=== PATIENT | female | born 1935 | race Caucasian/White ===

== ENCOUNTER 2018-04-23 17:05 | Observation (INO) | payer MEDICARE, MEDICAID ==
[~2018-04-23] VITALS: Ht 170.2 cm; Wt 50.3 kg
[~2018-04-23 17:05] MED LIST: LOPRESSOR25 MG PO; PHENERGAN25 M1 OR; ULTRAM50 MG PO
[2018-04-23 18:24] LABS: HEMATOCRIT 35.7 % (36.0-48.0); MCHC 33.6 g/dL (31.0-37.0); MCV 110.2 fL (80.0-100.0); MEAN PLATELET VOLUME 9.7 fL (7.4-10.4); RBC 3.24 10x6/uL (4.00-5.40); RDW 16.1 % (11.5-14.5); WBC 7.3 10x3/uL (4.8-10.8)
[2018-04-23 18:28] LABS: PLATELET COUNT 172 10x3/uL (130-400)
[2018-04-23 18:38] LABS: ALBUMIN 3.9 g/dL (3.4-5.0); ANION GAP 17.1 mmol/L (8-16); BILIRUBIN - TOTAL 0.39 mg/dL (0.2-1.3); CALCIUM 8.9 mg/dL (8.5-10.1); CARBON DIOXIDE 23.2 mmol/L (21.0-32.0); CREATININE - SERUM 1.5 mg/dL (0.6-1.3); POTASSIUM - SERUM 4.3 mmol/L (3.5-5.1); PROTEIN - SERUM 8.2 g/dL (6.4-8.2)
[2018-04-23 18:52] LABS: BASOPHILS 1 % (0-2); EOSINOPHILS 3 % (0-7); LYMPHOCYTES 58 % (15-50); MONOCYTES 9 % (2-11); NEUTROPHILS 29 % (40-80); PLATELET ESTIMATE NORMAL
[2018-04-23 18:55] LABS: ROULEAUX OCC; TEAR DROP CELLS OCC
--- NOTE | 2018-04-23 19:05 | NUR ---
PATIENT AWAKE AND ALERT, C/O HEADACHE. RESPIRATIONS EVEN AND UNLABORED. FAMILY AT BEDSIDE. BLANKET GIVEN. CALL LIGHT WITHIN REACH. NO OTHER NEEDS NOTED. UPDATED ON PLAN OF CARE AND DELAYS IN CARE. WILL CONTINUE TO MONITOR.
[2018-04-23 19:30] LABS: CREATINE KINASE 71 UL (21-215); LIPASE 210 U/L (73-393); PRO BNP 3276 pg/mL (0-450); THYROID STIMULATING HORMONE 3.73 uIU/mL (0.36-3.74)
[2018-04-23 19:38] LABS: TROPONIN-I < 0.017 ng/mL (0.000-0.060)
--- NOTE | 2018-04-23 20:20 | NUR ---
PATIENT AWAKE AND ALERT. LYING SUPINE. RESPIRATIONS EVEN AND UNLABORED. FAMILY AT BEDSIDE. NO NEEDS NOTED. UPDATED ON PLAN OF CARE AND DELAYS IN CARE. WILL CONTINUE TO MONITOR.
[2018-04-23 20:29] VITALS: BP 160/79
--- NOTE | 2018-04-23 21:20 | NUR ---
PATIENT AWAKE AND ALERT. NO NEEDS NOTED. UPDATED ON PLAN OF CARE AND DELAYS IN CARE. WILL CONTINUE TO MONITOR.
--- NOTE | 2018-04-23 22:30 | NUR ---
PATIENT AWAKE AND ALERT. FAMILY AT BEDSIDE. NO NEEDS NOTED. WILL CONTINUE TO MONITOR.
[2018-04-24] MEDS ORDERED: ASPIRIN EC81 M1 PO (01:01)
[2018-04-24 01:31] VITALS: BMI 17.4
[2018-04-24 04:59] VITALS: BP 139/67
[2018-04-24 08:00] VITALS: BP 123/72
[2018-04-24 10:50] LABS: BASOPHILS 0.6 % (0-2); EOSINOPHILS 0 % (0-7); HEMATOCRIT 35.1 % (36.0-48.0); HEMOGLOBIN 11.8 g/dL (12-16); IMMATURE GRANULOCYTES 0.4 % (0-5); LYMPHOCYTES 52.1 % (15-50); MCHC 33.6 g/dL (31.0-37.0); MEAN PLATELET VOLUME 9.6 fL (7.4-10.4); MONOCYTES 9.6 % (2-11); NEUTROPHILS 37.3 % (40-80); PLATELET COUNT 168 10x3/uL (130-400); RBC 3.19 10x6/uL (4.00-5.40)
[2018-04-24 10:54] LABS: WBC 5.4 10x3/uL (4.8-10.8)
[2018-04-24 11:05] LABS: ALBUMIN 3.3 g/dL (3.4-5.0); ANION GAP 13.5 mmol/L (8-16); BILIRUBIN - TOTAL 0.4 mg/dL (0.2-1.3); CALCIUM 8.6 mg/dL (8.5-10.1); CARBON DIOXIDE 25.5 mmol/L (21.0-32.0); CREATININE - SERUM 1.6 mg/dL (0.6-1.3); PROTEIN - SERUM 6.7 g/dL (6.4-8.2)
[2018-04-24 12:30] VITALS: BP 137/68
[2018-04-24 12:42] VITALS: BMI 17.4
[2018-04-24 16:00] VITALS: BP 117/49
--- NOTE | 2018-04-24 17:08 | MORECARE ---
CASE MANAGEMENT DISCHARGE SUMMARY PATIENT: BERNARD FARRAR UNIT: [id number] ADM DATE: 04/23/18 AGE: 82 : 36 SEX: F ROOM/BED: D.2218 AUTHOR: FRANCISCO HAQ PHYSICIAN: REFERRING PHYSICIAN: SHELL ANSARI MD DATE OF SERVICE: 04/24/18 Discharge Plan Patient Name: BERNARD FARRAR [facility] [facility] 1935 Planned Disposition: Home Anticipated Discharge Date: Discharge Date: Expected LOS: Initial Reviewer: [email or web address] Initial Review Date: 04/23/2018 Generated: 04/24/18 6:08 pm DCPIA - Discharge Planning Initial Assessment Updated by [email or web address]: Shila Corona on 04/24/18 5:08 pm * Is the patient Alert and Oriented? Yes * How many steps to enter\exit or inside your home? * PCP [facility] * Pharmacy [facility] IN [place] * Preadmission Environment Home Alone * ADLs Independent * Equipment Cane Walker Wheelchair * List name and contact numbers for known caregivers / representatives who currently or will assist patient after discharge: JENNIFER GAMBLE (DAUGHTER) [phone] * Verbal permission to speak to the caregivers and representatives has been obtained from the patient. N/A * Community resources currently utilized None * Additional services required to return to the preadmission environment? No * Can the patient safely return to the preadmission environment? Yes * Has this patient been hospitalized within the prior 30 days at any hospital? No Patient Name: BERNARD FARRAR Page [id number] at 1708 All edits/amendments must be made on the electronic document DICTATION DATE: 04/24/181707 SCHOOL BUS TECHNICIAN: ROJELIO 04/24/181707 RPT#: [id number] DC DATE: STATUS: ADM IN [facility] [address] [place] [address] END OF REPORT
--- NOTE | 2018-04-24 17:17 | MORECARE ---
CASE MANAGEMENT DISCHARGE SUMMARY PATIENT: BERNARD FARRAR UNIT: [id number] ADM DATE: 04/23/18 AGE: 82 : 36 SEX: F ROOM/BED: D.2218 AUTHOR: EUN,DOC PHYSICIAN: REFERRING PHYSICIAN: SHELL ANSARI MD DATE OF SERVICE: 04/24/18 Discharge Plan Patient Name: BERNARD FARRAR Facility: [facility]:[place] : 1935 Planned Disposition: Home Anticipated Discharge Date: Discharge Date: Expected LOS: Initial Reviewer: [email or web address] Initial Review Date: 04/23/2018 Generated: 04/24/18 6:17 pm Comments DCP- Discharge Planning Updated by [id number]: Shila Corona on 04/24/18 4:[address] Patient Name: BERNARD FARRAR Admission Status: ER Accout number: [id number] Admission Date: 04-23-2018 : 1935 Admission Diagnosis: Attending: SHELL ANSARI Current LOS: 1 Anticipated DC Date: Planned Disposition: Home Primary Insurance: [employer] CHOICE PPO MCR ADVANT Discharge Planning Comments: CM met with patient to assess discharge planning needs. Patient lives independently at home where she plans to return at [place]. She stated that her son lives by & her daughter will be the one to drive her home. She has a walker, wheelchair and walking cane at home. She does not want home health at this time and feels like her home is safe to return. CM will continue to follow and assist with DC planning as needed Junior Automation Engineer: Shila Corona DCPIA - Discharge Planning Initial Assessment Updated by [email or web address]: Shila Corona on 04/24/18 5:08 pm * Is the patient Alert and Oriented? Yes * How many steps to enter\exit or inside your home? * PCP [facility] * Pharmacy [facility] IN [place] * Preadmission Environment Home Alone * ADLs Independent * Equipment Cane Walker Wheelchair * List name and contact numbers for known caregivers / representatives who currently or will assist patient after discharge: JENNIFER GAMBLE (DAUGHTER) [phone] * Verbal permission to speak to the caregivers and representatives has been obtained from the patient. N/A * Community resources currently utilized None * Additional services required to return to the preadmission environment? No * Can the patient safely return to the preadmission environment? Yes * Has this patient been hospitalized within the prior 30 days at any hospital? No Last DP export: 04/24/18 4:08 pm Patient Name: BERNARD FARRAR Page [id number] at 1712 All edits/amendments must be made on the electronic document DICTATION DATE: 04/24/181716 AGRONOMY SUPERVISOR: ROJELIO 04/24/181716 RPT#: [id number] DC DATE: STATUS: ADM IN [facility] [address] [place] [address] END OF REPORT
--- NOTE | 2018-04-24 18:26 | NUR ---
PATIENT RESTING IN BED WITH NO NEEDS VOICED. CL IN REACH
[2018-04-24 20:48] VITALS: BP 105/39
[2018-04-25 00:34] VITALS: BP 124/50
[2018-04-25 04:46] VITALS: BP 120/48
[2018-04-25 06:50] LABS: ALBUMIN 2.8 g/dL (3.4-5.0); ANION GAP 13.3 mmol/L (8-16); BASOPHILS 0.3 % (0-2); BILIRUBIN - TOTAL 0.33 mg/dL (0.2-1.3); CALCIUM 8.1 mg/dL (8.5-10.1); CARBON DIOXIDE 23.7 mmol/L (21.0-32.0); CREATININE - SERUM 1.4 mg/dL (0.6-1.3); EOSINOPHILS 4.1 % (0-7); HEMATOCRIT 29.9 % (36.0-48.0); HEMOGLOBIN 9.9 g/dL (12-16); IMMATURE GRANULOCYTES 0.5 % (0-5); LYMPHOCYTES 57.2 % (15-50); MCH 36.5 pg (26.0-34.0); MCHC 33.1 g/dL (31.0-37.0); MCV 110.3 fL (80.0-100.0); MEAN PLATELET VOLUME 9.5 fL (7.4-10.4); MONOCYTES 9.6 % (2-11); NEUTROPHILS 28.3 % (40-80); PLATELET COUNT 152 10x3/uL (130-400); PROTEIN - SERUM 5.7 g/dL (6.4-8.2); RBC 2.71 10x6/uL (4.00-5.40); RDW 16.3 % (11.5-14.5); WBC 6.2 10x3/uL (4.8-10.8)
[2018-04-25 07:34] VITALS: Ht 170.2 cm; Wt 50.3 kg
[2018-04-25 09:13] VITALS: BP 139/60
[2018-04-25] MEDS ORDERED: BAYER ASPIRIN325 MG PO (09:41)
--- NOTE | 2018-04-25 10:48 | MORECARE ---
CASE MANAGEMENT DISCHARGE SUMMARY PATIENT: BERNARD FARRAR UNIT: [id number] ADM DATE: 04/23/18 AGE: 82 : 36 SEX: F ROOM/BED: D.2218 AUTHOR: EUNDOC PHYSICIAN: REFERRING PHYSICIAN: SHELL ANSARI MD DATE OF SERVICE: 04/25/18 Discharge Plan Patient Name: BERNARD FARRAR Facility: [facility]:[place] : 1935 Planned Disposition: Home Anticipated Discharge Date: Discharge Date: Expected LOS: Initial Reviewer: [email or web address] Initial Review Date: 04/23/2018 Generated: 04/25/18 11:48 am Comments DCP- Discharge Planning Updated by [email or web address]: Shila Corona on 04/25/18 9:[address] Patient Name: BERNARD FARRAR Encounter No: [id number] : 1935 Primary Insurance: [employer] CHOICE PPO MCR ADVANT Anticipated DC Date: Planned Disposition: Home External Planned Provider: : DCP follow-up note: Patient and family in agreement with discharge plan. Patient does not want Home health, she stated she does not need it. Family at bedside to drive her home. No changes to plan. Case management will follow and assist as needed. Shila Corona DCP- Discharge Planning Updated by [email or web address]: Shila Corona on 04/24/18 4:[address] Patient Name: BERNARD FARRAR Admission Status: ER Accout number: [id number] Admission Date: 04-23-2018 : 1935 Admission Diagnosis: Attending: SHELL ANSARI Current LOS: 1 Anticipated DC Date: Planned Disposition: Home Primary Insurance: [employer] CHOICE PPO MCR ADVANT Discharge Planning Comments: CM met with patient to assess discharge planning needs. Patient lives independently at home where she plans to return at [place]. She stated that her son lives by & her daughter will be the one to drive her home. She has a walker, wheelchair and walking cane at home. She does not want home health at this time and feels like her home is safe to return. CM will continue to follow and assist with DC planning as needed Ceo And Founder: Shila Corona DCPIA - Discharge Planning Initial Assessment Updated by [email or web address]: Shila Corona on 04/24/18 5:08 pm * Is the patient Alert and Oriented? Yes * How many steps to enter\exit or inside your home? * PCP [facility] * Pharmacy [facility] IN [place] * Preadmission Environment Home Alone * ADLs Independent * Equipment Cane Walker Wheelchair * List name and contact numbers for known caregivers / representatives who currently or will assist patient after discharge: JENNIFER GAMBLE (DAUGHTER) [phone] * Verbal permission to speak to the caregivers and representatives has been obtained from the patient. N/A * Community resources currently utilized None * Additional services required to return to the preadmission environment? No * Can the patient safely return to the preadmission environment? Yes * Has this patient been hospitalized within the prior 30 days at any hospital? No Last DP export: 04/24/18 4:17 pm Patient Name: BERNARD FARRAR Page [id number] at 1048 All edits/amendments must be made on the electronic document DICTATION DATE: 04/25/18 1047 ORGANIC EXTRACTIONS TECHNICIAN: ROJELIO 04/25/18 1047 RPT#: [id number] DC DATE: STATUS: ADM IN [facility] [address] [place] [address] END OF REPORT
--- NOTE | 2018-04-30 11:48 | MORECARE ---
CASE MANAGEMENT DISCHARGE SUMMARY PATIENT: BERNARD FARRAR UNIT: [id number] ADM DATE: 04/23/18 AGE: 83 : 36 SEX: F ROOM/BED: D.2218 AUTHOR: FRANCISCO HAQ PHYSICIAN: REFERRING PHYSICIAN: SHELL ANSARI MD DATE OF SERVICE: 04/30/18 Discharge Plan Patient Name: BERNARD FARRAR Facility: [facility]:[place] : 1935 Planned Disposition: Home Anticipated Discharge Date: Discharge Date: 04/25/2018 Expected LOS: 0 Initial Reviewer: [email or web address] Initial Review Date: 04/23/2018 Generated: 04/30/18 12:48 pm DCP- Discharge Planning Updated by [email or web address]: Shila Corona on 04/25/18 9:[address] Patient Name: BERNARD FARRAR Encounter No: [id number] : 1935 Primary Insurance: [employer] CHOICE PPO MCR ADVANT Anticipated DC Date: Planned Disposition: Home External Planned Provider: : DCP follow-up note: Patient and family in agreement with discharge plan. Patient does not want Home health, she stated she does not need it. Family at bedside to drive her home. No changes to plan. Case management will follow and assist as needed. Shila Corona DCP- Discharge Planning Updated by [email or web address]: Shila Corona on 04/24/18 4:[address] Patient Name: BERNARD FARRAR Admission Status: ER Accout number: [id number] Admission Date: 04-23-2018 : 1935 Admission Diagnosis: Attending: SHELL ANSARI Current LOS: 1 Anticipated DC Date: Planned Disposition: Home Primary Insurance: [employer] CHOICE PPO MCR ADVANT Discharge Planning Comments: CM met with patient to assess discharge planning needs. Patient lives independently at home where she plans to return at [place]. She stated that her son lives by & her daughter will be the one to drive her home. She has a walker, wheelchair and walking cane at home. She does not want home health at this time and feels like her home is safe to return. CM will continue to follow and assist with DC planning as needed Prevention Rn: Shila Corona DCPIA - Discharge Planning Initial Assessment Updated by [email or web address]: Shila Corona on 04/24/18 5:08 pm * Is the patient Alert and Oriented? Yes * How many steps to enter\exit or inside your home? * PCP [facility] * Pharmacy [facility] IN [place] * Preadmission Environment Home Alone * ADLs Independent * Equipment Cane Walker Wheelchair * List name and contact numbers for known caregivers / representatives who currently or will assist patient after discharge: JENNIFER GAMBLE (DAUGHTER) [phone] * Verbal permission to speak to the caregivers and representatives has been obtained from the patient. N/A * Community resources currently utilized None * Additional services required to return to the preadmission environment? No * Can the patient safely return to the preadmission environment? Yes * Has this patient been hospitalized within the prior 30 days at any hospital? No Last DP export: 04/25/18 9:48 am Patient Name: BERNARD FARRAR Page 45653 at 1148 All edits/amendments must be made on the electronic document DICTATION DATE: 04/30/18 1147 K 12 SCHOOL PRINCIPAL: ROJELIO 04/30/18 1147 RPT#: [id number] DC DATE:04/25/18 STATUS: DIS IN [facility] [address] [place] [address] END OF REPORT
== END 2018-04-25 12:00 | disposition home or self-care (01) ==
LOC: D.ER 17:05 → D.MS 22:48 → OBSVTIME 22:48 → D.ER 22:48 → D.MS 04-25 12:00
PROVIDERS: Family Medicine; ADMIT Family Medicine; ATTEND Family Medicine
DX: R26.0 Ataxic gait (principal); C18.9 Malignant neoplasm of colon, unspecified; C78.00 Secondary malignant neoplasm of unspecified lung; R51 Headache; I10 Essential (primary) hypertension